=== PATIENT | male | born 1940 ===

== ENCOUNTER 2024-12-31 05:00 | Day surgery (SDC) | payer OTHER ==
[2024-12-23 10:17] VITALS: BP 145/82
[2024-12-23 10:51] LABS: BASO % 0.8 % (0.1-1.2); EOS # 0.09 (0.04-0.54); HEMATOCRIT 37.9 % (40.1-51.0); HEMOGLOBIN 12.4 g/dL (13.7-17.5); LYMPH # 1.81 (1.18-3.74); LYMPH % 19.2 % (19.3-53.1); MEAN CORPUSCULAR HEMOGLOBIN 30.3 pg (25.6-32.2); MONO # 0.75 (0.24-0.82); MONO % 7.9 % (4.7-12.5); NEUT # 6.67 (1.56-6.13); NEUT % 70.6 % (34.0-71.1); PLATELET COUNT 250 K/uL (163-369); RED BLOOD COUNT 4.09 M/uL (4.63-6.08); RED CELL DISTRIBUTION WIDTH 13.3 % (11.6-14.4)
[2024-12-23 11:33] LABS: INR 1.02; PARTIAL THROMBOPLASTIN TIME 27.3 SECONDS (22.0-34.0); PROTHROMBIN TIME 11.1 SECONDS (9.0-11.5)
[2024-12-23 11:45] LABS: ALBUMIN 3.9 gm/dL (3.4-5.0); BILIRUBIN TOTAL 0.48 mg/dL (0.3-1.2); CALCIUM 9.6 mg/dL (8.5-10.1); CREATININE SERUM 0.82 mg/dL (0.70-1.30); GFR 89.51; GLOBULINA 3.4 G/DL (2.4-3.5); POTASSIUM 4.49 mEq/L (3.5-5.1); TOTAL PROTEIN 7.3 gm/dL (6.4-8.2)
[~2024-12-31] VITALS: Ht 175.3 cm; Wt 64.9 kg
[~2024-12-31 05:00] MED LIST: ELIQUIS5 MG PO
== END 2024-12-31 11:20 | disposition home or self-care (01) ==
LOC: CIR.AMB 05:00
PROVIDERS: ATTEND Internal Medicine
DX: R13.19 Other dysphagia (principal); K22.0 Achalasia of cardia; R63.4 Abnormal weight loss; Z88.6 Allergy status to analgesic agent